=== PATIENT | female | born 1950 | race Asian ===

== ENCOUNTER 2024-09-11 06:20 | Day surgery (SDC) | payer OTHER ==
[~2024-09-11] VITALS: Ht 149.9 cm; Wt 67.7 kg
[2024-09-11] MEDS: SODIUM CHLORIDE 0.9% 1,000 ML IV ONE (08:20)
[2024-09-11] MEDS ORDERED: MIDAZOLAM HCL 2 MG/2 ML VIAL ONE (08:59)
[2024-09-11] MEDS ORDERED: FentaNYL CITRATE PF 100 MCG/2 ML VIAL ONE (08:59)
[2024-09-11] MEDS ORDERED: BUDE10.27 IH (09:23)
[2024-09-11] MEDS ORDERED: MONT-35 PO (09:23)
[2024-09-11] MEDS ORDERED: ESCI-8 PO (09:23)
[2024-09-11] MEDS ORDERED: ALBU18HF12 IH (09:23)
[2024-09-11 09:30] VITALS: PULSE 107; RESP 24; O2SAT 99
[2024-09-11] MEDS ORDERED: MethylPREDNISolone SOD SUCC 125 MG/2 ML VIAL ONE (10:33)
[2024-09-11] MEDS: MethylPREDNISolone SOD SUCC 125 MG/2 ML VIAL IVP ONE (10:37)
[2024-09-11] MEDS ORDERED: BENZOCAINE 20% 50 MCG/SPRAY 57 GM ONE (12:00)
[2024-09-11] MEDS ORDERED: LIDOCAINE 4% 50 ML SOLUTION ONE (12:00)
[2024-09-11] MEDS ORDERED: LIDOCAINE 2% 11 ML JELLY ONE (12:00)
[2024-09-11] MEDS ORDERED: ALBUTEROL SULFATE 2.5 MG/0.5 ML NEB SOLUTION NEB ONE (12:00)
== END 2024-09-11 13:30 | disposition home or self-care (01) ==
LOC: SURGERY 06:20
PROVIDERS: ATTEND Internal Medicine Critical Care Medicine
DX: R05.3 Chronic cough (principal); J38.4 Edema of larynx; B37.0 Candidal stomatitis; R04.2 Hemoptysis; R91.8 Other nonspecific abnormal finding of lung field; J45.909 Unspecified asthma, uncomplicated; M47.814 Spondylosis without myelopathy or radiculopathy, thoracic region; I70.0 Atherosclerosis of aorta; I10 Essential (primary) hypertension; D64.9 Anemia, unspecified; E78.00 Pure hypercholesterolemia, unspecified; M17.9 Osteoarthritis of knee, unspecified; M19.019 Primary osteoarthritis, unspecified shoulder; Z79.82 Long term (current) use of aspirin; Z79.899 Other long term (current) drug therapy; Z98.51 Tubal ligation status
CPT/HCPCS: 31623; 31624; 94640; 71045; 99156; 99157; J3010; J2250; J2919; J7613; Z7610